=== PATIENT | male | born 1970 | race Asian ===

== ENCOUNTER 2016-12-16 07:37 | Emergency (ER) | payer SELFPAY | END 2016-12-16 07:38 | disposition left against medical advice (07) | LOC: ED 07:37 | DX: Z00.8 Encounter for other general examination (principal); Z53.21 Procedure and treatment not carried out due to patient leaving prior to being seen by health care provider ==

== ENCOUNTER 2020-12-27 21:40 | Emergency (ER) | payer MEDICARE ==
--- NOTE | 2020-12-27 22:39 | Emergency Department Report ---
<AV TATE - Last Filed: 12/27/20 22:36> ED Psych HPI - General Chief Complaint: Psych Stated Complaint: HEARING VOICES AND SUICIDAL THOUGHTS Time Seen by Provider: 12/27/20 22:21 Source: patient Mode of arrival: Ambulatory - History of Present Illness Initial Comments: Mr. De Souza is 50 years old male with history of schizoaffective disorder. Patient presented to the ER stating that he is hearing voices asking him to kill himself by cutting his wrist. Patient denies any homicidal ideation. No visual hallucination also. MD Complaint: suicidal ideation, feels depressed - Related Data Allergies Allergy/AdvReac Type Severity Reaction Status Date / Time codeine Allergy Unknown Verified 09/18/17 12:20 haloperidol [From Haldol] Allergy Seizure Verified 09/18/17 12:20 ED Review of Systems Comment: All other systems reviewed and negative Constitutional: denies: chills, fever Respiratory: denies: cough, shortness of breath, SOB with exertion Cardiovascular: denies: chest pain, palpitations Gastrointestinal: denies: abdominal pain, nausea Musculoskeletal: denies: back pain Neurological: denies: headache, weakness, numbness, paresthesias, confusion, abnormal gait Psychiatric: depression, auditory hallucinations, suicidal thoughts. denies: visual hallucinations, homicidal thoughts ED Past Medical Hx - Past Medical History Previous Medical History?: Yes Hx Hypertension: Yes Hx Psychiatric Treatment: Yes (Paranoid schizophrenia, Severe depression) - Surgical History Past Surgical History?: Yes Hx Appendectomy: Yes Additional Surgical History: Right leg - Social History Smoking Status: Never Smoker Substance Use Type: None ED Physical Exam - General Limitations: No Limitations General appearance: alert, in no apparent distress - Head Head exam: Present: atraumatic, normocephalic, normal inspection - Eye Eye exam: Present: normal appearance, PERRL - ENT ENT exam: Present: normal exam, normal orophraynx, mucous membranes moist - Neck Neck exam: Present: normal inspection, full ROM. Absent: tenderness, meningismu s - Respiratory Respiratory exam: Present: normal lung sounds bilaterally - Cardiovascular Cardiovascular Exam: Present: regular rate, normal rhythm, normal heart sounds - GI/Abdominal GI/Abdominal exam: Present: soft, normal bowel sounds. Absent: distended, tenderness, guarding, rebound, rigid, organomegaly, mass, bruit, pulsatile mass, hernia - Extremities Exam Extremities exam: Present: normal inspection, full ROM, normal capillary refill. Absent: tenderness, pedal edema, calf tenderness - Back Exam Back exam: Present: normal inspection, full ROM. Absent: CVA tenderness (R), CVA tenderness (L) - Neurological Exam Neurological exam: Present: alert, oriented X3, CN II-XII intact, normal gait, reflexes normal. Absent: motor sensory deficit - Psychiatric Psychiatric exam: Present: suicidal ideation. Absent: agitated, manic, homicidal ideation - Skin Skin exam: Present: warm, normal color. Absent: dry, intact ED Disposition Clinical Impression: Hallucinations Disposition: [id number]/TX-[facility] PSY HOSP/PSY UNIT Condition: Stable Referrals: PRIMARY CARE, [Primary Care Provider] - 3-5 Days [facility] [Outside] - 3-5 Days <NAYELI FLOYD - Last Filed: 12/28/20 21:29> ED Review of Systems ROS: Stated complaint: HEARING VOICES AND SUICIDAL THOUGHTS Other details as noted in HPI ED Course Vital Signs 12/27/20 12/27/20 12/28/20 21:41 21:57 02:31 Temperature 98.2 F 97.6 F Pulse Rate 92 H 66 Respiratory 20 18 Rate Blood Pressure 118/78 117/72 [Left] O2 Sat by Pulse 96 96 96 Oximetry 12/28/20 12/28/20 09:19 20:40 Temperature Pulse Rate Respiratory Rate Blood Pressure [Left] O2 Sat by Pulse 98 99 Oximetry ED Medical Decision Making - Lab Data Result diagrams: 12/27/20 22:29 12/27/20 22:29 Critical care attestation.: If time is entered above; I have spent that time in minutes in the direct care of this critically ill patient, excluding procedure time. ED Disposition Is pt being admited?: No Does the pt Need Aspirin: No
[2020-12-27 23:01] LABS: Basophils % (Auto) 0.7 % (0.0-1.8); Eosinophils # (Auto) 0.1 K/mm3 (0.0-0.4); Hematocrit 38.4 % (35.5-45.6); Hemoglobin 13.3 gm/dl (11.8-15.2); Lymphocytes # (Auto) 1.6 K/mm3 (1.2-5.4); Lymphocytes % (Auto) 30.3 % (13.4-35.0); Mean Corpuscular HGB Conc 35 % (32-34); Mean Corpuscular Volume 96 fl (84-94); Monocytes # (Auto) 0.6 K/mm3 (0.0-0.8); Monocytes % (Auto) 12.4 % (0.0-7.3); Platelet Count 174 K/mm3 (140-440); Red Blood Count 4.01 M/mm3 (3.65-5.03); Red Cell Distribution Width 13.5 % (13.2-15.2)
[2020-12-27 23:12] LABS: Mucus,Urine FEW /HPF
[2020-12-27 23:13] LABS: Bilirubin,Urine NEG (Negative); Blood,Urine NEG (Negative); Color,Urine Yellow (Yellow); Protein,Urine <15 mg/dL mg/dL (Negative)
[2020-12-27 23:15] LABS: BUN/Creatinine Ratio 9; Blood Urea Nitrogen 10 mg/dL (9-20); Calcium 8.9 mg/dL (8.4-10.2); Hemolysis Index 3
[2020-12-27 23:23] LABS: Alanine Aminotransferase 10 units/L (7-56); Albumin 3.7 g/dL (3.9-5)
[2020-12-27 23:24] LABS: Amphetamine Screen,Urine PRESUMPTIVE NEGATIVE; Benzodiazepines Screen,Urine PRESUMPTIVE NEGATIVE; Cannabinoid Screen,Urine PRESUMPTIVE NEGATIVE; Cocaine Screen,Urine PRESUMPTIVE NEGATIVE; Methadone Screen,Urine PRESUMPTIVE NEGATIVE; Opiate Screen,Urine PRESUMPTIVE NEGATIVE
[2020-12-27 23:29] LABS: Bilirubin,Direct < 0.2 mg/dL (0-0.2)
--- NOTE | 2020-12-28 11:25 | Consultation ---
History of Present Illness - Reason for Consult Consult date: 12/28/20 Reason for consult: mental health evaluation - History of Present Psychiatric Illness Per ED Note: Mr. De Souza is 50 years old male with history of schizoaffective disorder. Patient presented to the ER stating that he is hearing voices asking him to kill himself by cutting his wrist. Patient denies any homicidal ideation. No visual hallucination also. Tee De Souza is a 50 year old male with a history of Schizoaffective disorder who presents to the ED with suicidal ideation. The patient reports an ongoing depression since the of his mother two months ago. He reports being compliant with psychotropic medications. He endorse suicidal ideation without a plan. The patient denies any current homicidal ideation and denies hallucinations. PAST PSYCHIATRIC HISTORY: Diagnoses: Schizoaffective Suicide attempts or Self-harm behavior: Yes Prior psychiatric hospitalizations: yes Substance Abuse history: yes Previous psychiatric medications tried: Outpatient treatment: yes PAST MEDICAL HISTORY: None reported or document Family Psychiatric History: None reported or documented SOCIAL HISTORY Marital Status: Single Living Arrangements: assisted Employment Status: disabled Access to guns/weapons: denies Education: History of Abuse: denies Legal History: denies REVIEW OF SYSTEMS Constitutional: Negative for weight loss ENT: Negative for stridor Respiratory: Negative for cough or hemoptysis All other systems reviewed and are negative MENTAL STATUS EXAMINATION General Appearance and Behavior: Age appropriate, good hygiene, wearing appropriate clothes, calm and cooperative polite with questioning. Cooperation: engaged Psychomotor Behavior: Psychomotor normal Mood: depressed Affect and affective range: congruent with stated mood Thought Process: goal directed Thought Content: hallucinations Speech: Normal volume, Regular rate and rhythm, Suicidal Ideation: yes with plan to OD Homicidal Ideation: Denies Hallucinations: Auditory, command in nature Delusions: None elicited Impulse Control: Unimpaired Insight and Judgment: Limited Memory: Normal Attention: attentive Orientation: a/o Assessment and Plan (1) Schizoaffective Disorder Current Visit: Yes Status: Acute Treatment Plan Please restart home medications The patient to comply with previously prescribed medications Risks, benefits and alternatives of medications discussed with the patient, questions answered and consent obtained from patient. PSYCHOTHERAPY: Supportive psychotherapy provided MEDICAL: Per primary team DELIRIUM PRECAUTIONS: Please re-orient patient frequently, keep lights on during the day, and minimize benzodiazepines and opiates as these medications could worsen patient's confusion. CMA OR LPN: Defer to primary DISPOSITION: Recommend acute inpatient psychiatric hospitalization at this time. FOLLOW-UP: Will follow Thank you for the consult. Please contact with any questions and/or concerns. Medications and Allergies Medications and Allergies Allergies Allergy/AdvReac Type Severity Reaction Status Date / Time codeine Allergy Unknown Verified 09/18/17 12:20 haloperidol [From Haldol] Allergy Seizure Verified 09/18/17 12:20 Mental Status Exam - Vital signs Last Vital Signs Temp 97.6 F 12/28/20 02:31 Pulse 66 12/28/20 02:31 Resp 18 12/28/20 02:31 BP 117/72 12/28/20 02:31 Pulse Ox 98 12/28/20 09:19 Results Result Diagrams: 12/27/20 22:29 12/27/20 22:29 Abnormal lab results 12/27/20 12/27/20 12/27/20 Range/Units 22:29 22:29 22:29 MCV 96 H (84-94) fl MCH 33 H (28-32) pg MCHC 35 H (32-34) % [place] % (Auto) 12.4 H (0.0-7.3) % Albumin (3.9-5) g/dL Salicylates < 0.3 L (2.8-20.0) mg/dL Acetaminophen 5.0 L (10.0-30.0) ug/mL 12/27/20 Range/Units 22:35 MCV (84-94) fl MCH (28-32) pg MCHC (32-34) % [place] % (Auto) (0.0-7.3) % Albumin 3.7 L (3.9-5) g/dL Salicylates (2.8-20.0) mg/dL Acetaminophen (10.0-30.0) ug/mL All other labs normal.
--- NOTE | 2020-12-28 12:05 | Event Note ---
Date: 12/28/20 S: No complaints O: Vital signs stable. Patient is calm and cooperative. A: Schizoaffective disorder P: 1013; awaiting acute inpatient psychiatric placement
[2020-12-28] MEDS ORDERED: FLUoxetine 20 MG CAP PO SCH (12:30)
[2020-12-28] MEDS: BENZTROPINE 1 MG TAB PO SCH ×2 (12:55→21:47)
[2020-12-28] MEDS: busPIRone 10 MG TAB PO SCH ×2 (12:56→21:47)
[2020-12-28] MEDS ORDERED: risperiDONE 1 MG TAB PO SCH (13:00)
[2020-12-28 21:46] VITALS: BP 120/80
[2020-12-28] MEDS ORDERED: traZODone 50 MG TAB PO SCH (22:00)
[2020-12-28] MEDS ORDERED: DIVALPROEX DR 500 MG TAB PO SCH (22:00)
== END 2020-12-28 21:48 ==
LOC: ED 21:40 → EEVIPCON 21:40 → ED 12-28 21:48
DX: R44.0 Auditory hallucinations (principal); I10 Essential (primary) hypertension; Z20.822 Contact with and (suspected) exposure to COVID-19; Z88.6 Allergy status to analgesic agent; Z88.8 Allergy status to other drugs, medicaments and biological substances; Z90.49 Acquired absence of other specified parts of digestive tract; Z98.890 Other specified postprocedural states
CPT/HCPCS: 36415; 80048; 80076; 80307; 81001; 85025; 99285; U0003; 80320; G0480

== ENCOUNTER 2020-12-28 13:41 | Inpatient (IN) | payer MEDICARE ==
[2021-01-02 09:12] VITALS: BP 99/65
== END 2021-01-02 13:36 | disposition home or self-care (01) | DRG 885 ==
LOC: UNDOADMIN 13:41 → 3A 13:41 → 5A 21:47
PROVIDERS: ADMIT Psychiatry & Neurology Psychiatry; ATTEND Psychiatry & Neurology Psychiatry
DX: F25.9 Schizoaffective disorder, unspecified (principal); R45.851 Suicidal ideations; K29.70 Gastritis, unspecified, without bleeding; Z88.8 Allergy status to other drugs, medicaments and biological substances; Z88.5 Allergy status to narcotic agent; Z79.899 Other long term (current) drug therapy; Z79.891 Long term (current) use of opiate analgesic; Z79.01 Long term (current) use of anticoagulants; Z90.49 Acquired absence of other specified parts of digestive tract; Z82.49 Family history of ischemic heart disease and other diseases of the circulatory system
CPT/HCPCS: 36415; 80048; 80053; 80061; 80074; 80076; 80307; 80320; 81001; 82962; 84443; 85025; G0378; G0480; U0003

== ENCOUNTER 2021-06-02 19:30 | Emergency (ER) | payer MEDICARE ==
--- NOTE | 2021-06-02 23:59 | Emergency Department Report ---
ED General Adult HPI - General Chief complaint: Abdominal Pain Stated complaint: Constipated 3 days Time Seen by Provider: 06/02/21 23:36 Source: patient Mode of arrival: Ambulatory Limitations: No Limitations - History of Present Illness Initial comments: 50-year-old male with asthma department complaining of a 2 to 3-day history of developing constipation not responding to his suppository. Reports no no vomiting no diarrhea no chest pain or palpitations hemoptysis no hematemesis hematochezia but pain is dull and achy. Still he still able to tolerate meals and improved but was at a AA meeting area was wanted get checked out. -: Gradual Location: abdomen Severity scale (0 -10): 0 Consistency: constant Improves with: none Worsens with: none Associated Symptoms: denies: chest pain, cough, diaphoresis, loss of appetite, malaise, nausea/vomiting Treatments Prior to Arrival: none - Related Data Home Medications Medication Instructions Recorded Confirmed Last Taken Benztropine [Cogentin] 1 mg PO BID 12/29/20 12/29/20 Unknown Divalproex [Aron Sorensen] 1,500 mg PO HS 12/29/20 12/29/20 Unknown Paliperidone Palmitate [Invega 234 mg IM QMONTH 12/29/20 12/29/20 Unknown Sustenna] Trazodone HCl 150 mg PO HS 12/29/20 12/29/20 Unknown amLODIPine 5 mg PO DAILY 12/29/20 12/29/20 Unknown busPIRone [Buspar] 10 mg PO BID 12/29/20 12/29/20 Unknown risperiDONE [RisperDAL] 2 mg PO HS 12/29/20 12/29/20 Unknown Previous Rx's Medication Instructions Recorded Last Taken Type FLUoxetine [PROzac] 10 mg PO QDAY #30 tablet 01/02/21 Unknown Rx FLUoxetine [PROzac] 40 mg PO QDAY #60 capsule 01/02/21 Unknown Rx risperiDONE [RisperDAL] 1 mg PO DAILY #30 tablet 01/02/21 Unknown Rx traZODone [Desyrel] 150 mg PO QHS #90 tablet 01/02/21 Unknown Rx Lactulose [Cephulac] 30 gm PO Q6HR #450 ml 06/02/21 Unknown Rx bisacodyL [Dulcolax suppos] 10 mg [place] QDAY #14 supp.rect 06/02/21 Unknown Rx Allergies Allergy/AdvReac Type Severity Reaction Status Date / Time codeine Allergy Unknown Verified 09/18/17 12:20 haloperidol [From Haldol] Allergy Seizure Verified 09/18/17 12:20 ED Review of Systems ROS: Stated complaint: Constipated 3 days Other details as noted in HPI Comment: All other systems reviewed and negative ED Past Medical Hx - Past Medical History Hx Hypertension: Yes Hx Psychiatric Treatment: Yes (Paranoid schizophrenia, Severe depression) - Surgical History Hx Appendectomy: Yes Additional Surgical History: Right leg - Social History Smoking Status: Never Smoker - Medications Home Medications: Home Medications Medication Instructions Recorded Confirmed Last Taken Type Benztropine [Cogentin] 1 mg PO BID 12/29/20 12/29/[address] [Aron Sorensen] 1,500 mg PO HS 12/29/20 12/29/20 Unknown History Paliperidone Palmitate [Invega 234 mg IM QMONTH 12/29/20 12/29/20 Unknown History Sustenna] Trazodone HCl 150 mg PO HS 12/29/20 12/29/20 Unknown History amLODIPine 5 mg PO DAILY 12/29/20 12/29/20 Unknown History busPIRone [Buspar] 10 mg PO BID 12/29/20 12/29/20 Unknown History risperiDONE [RisperDAL] 2 mg PO HS 12/29/20 12/29/20 Unknown History FLUoxetine [PROzac] 10 mg PO QDAY #30 tablet 01/02/21 Unknown Rx FLUoxetine [PROzac] 40 mg PO QDAY #60 capsule 01/02/21 Unknown Rx risperiDONE [RisperDAL] 1 mg PO DAILY #30 tablet 01/02/21 Unknown Rx traZODone [Desyrel] 150 mg PO QHS #90 tablet 01/02/21 Unknown Rx Lactulose [Cephulac] 30 gm PO Q6HR #450 ml 06/02/21 Unknown Rx bisacodyL [Dulcolax suppos] 10 mg [place] QDAY #14 supp.rect 06/02/21 Unknown Rx ED Physical Exam - General Limitations: No Limitations General appearance: alert, in no apparent distress - Head Head exam: Present: atraumatic, normocephalic - Eye Eye exam: Present: normal appearance, PERRL, EOMI - ENT ENT exam: Present: normal exam, mucous membranes moist - Neck Neck exam: Present: normal inspection - Respiratory Respiratory exam: Present: normal lung sounds bilaterally. Absent: respiratory distress - Cardiovascular Cardiovascular Exam: Present: regular rate, normal rhythm. Absent: systolic murmur, diastolic murmur, rubs, gallop - GI/Abdominal GI/Abdominal exam: Present: soft, normal bowel sounds, other (Abdomen soft bowel sounds are positive not hyperactive or hypoactive. No \ [place]jaily bowel sounds). Absent: tenderness, guarding, rebound, organomegaly, mass, bruit, pulsatile mass - Rectal Rectal exam: Present: deferred - Extremities Exam Extremities exam: Present: normal inspection - Back Exam Back exam: Present: normal inspection - Neurological Exam Neurological exam: Present: alert, oriented X3 - Psychiatric Psychiatric exam: Present: normal affect, normal mood - Skin Skin exam: Present: warm, dry, intact, normal color. Absent: rash ED Course Vital Signs 06/02/21 21:14 Temperature 98.3 F Pulse Rate 102 H Respiratory 14 Rate Blood Pressure 152/97 [Right] O2 Sat by Pulse 97 Oximetry ED Medical Decision Making - Radiology Data Radiology results: report reviewed [facility] [address] [place] [address] XRay Report Signed Patient: ALEX SALAZAR MR#: [id number] : 1970 Acct:[id number] Age/Sex: 50 / M ADM Date: 06/02/21 Loc: ED Attending Dr: Ordering Physician: ANASTASIA ROBERSON Date of Service: 06/02/21 Procedure(s): XR abd series w cxr 1V Accession Number(s): [id number] cc: ANASTASIA ROBERSON Fluoro Time In Minutes: ABDOMEN 3 VIEW(S) INDICATION / CLINICAL INFORMATION: constipation abd pain. COMPARISON: 05/17/21 FINDINGS: TUBES / LINES: None. BOWEL GAS PATTERN: No dilated large or small bowel. Moderate amount of fecal material throughout the colon similar to prior study. FREE AIR / EXTRALUMINAL GAS: None seen. ADDITIONAL FINDINGS: No significant additional findings. CHEST: Visualized chest shows no significant abnormality. IMPRESSION: 1. Moderate amount of fecal material within the colon, unchanged. Signer Name: Renu Alejo MD Signed: 06/03/2021 12:06 AM Workstation Name: [id number] Transcribed By: DT Dictated By: Gabo Alejo MD Electronically Authenticated By: Gabo Alejo MD Signed Date/Time: 06/03/216 DD/ 0005 TD/TT: - Medical Decision Making 50-year-old male seen emerge department for possible constipation and x-ray does shows moderate amount of stool but no obstructive process. Is been advised on treatments to help to alleviate the symptoms and when to return to emergency department. Patient is alert and oriented x3 in no acute distress and tolerating oral. Remained afebrile during the visit no vomiting episodes Critical care attestation.: If time is entered above; I have spent that time in minutes in the direct care of this critically ill patient, excluding procedure time. ED Disposition Clinical Impression: Abdominal pain Disposition: HOME / SELF CARE / HOMELESS Is pt being admited?: No Does the pt Need Aspirin: No Condition: Stable Prescriptions: Lactulose [Cephulac] 30 gm PO Q6HR #450 ml bisacodyL [Dulcolax suppos] 10 mg [place] QDAY #14 supp.rect
--- NOTE | 2021-06-03 00:10 | XRay Report ---
ABDOMEN 3 VIEW(S) INDICATION / CLINICAL INFORMATION: constipation abd pain. COMPARISON: 05/17/21 FINDINGS: TUBES / LINES: None. BOWEL GAS PATTERN: No dilated large or small bowel. Moderate amount of fecal material throughout the colon similar to prior study. FREE AIR / EXTRALUMINAL GAS: None seen. ADDITIONAL FINDINGS: No significant additional findings. CHEST: Visualized chest shows no significant abnormality. IMPRESSION: 1. Moderate amount of fecal material within the colon, unchanged. Signer Name: Renu Alejo MD Signed: 06/03/2021 12:06 AM Workstation Name: [id number]
[2021-06-03 02:24] VITALS: BP 140/80
== END 2021-06-03 03:00 | disposition home or self-care (01) ==
LOC: ED 19:30
DX: R10.9 Unspecified abdominal pain (principal); Z88.5 Allergy status to narcotic agent; Z88.8 Allergy status to other drugs, medicaments and biological substances; I10 Essential (primary) hypertension; Z90.89 Acquired absence of other organs
CPT/HCPCS: 74022; 99283

== ENCOUNTER 2021-07-10 14:51 | Emergency (ER) | payer MEDICARE ==
[2021-07-10] MEDS ORDERED: BENZTROPINE 0.5 MG TAB PO ONE (17:32)
[2021-07-10] MEDS ORDERED: ACETAMINOPHEN 500 MG TAB PO ONE (17:33)
--- NOTE | 2021-07-10 17:37 | Emergency Department Report ---
ED Psych HPI - General Chief Complaint: Psych Stated Complaint: SI/HEARING VOICES Time Seen by Provider: 07/10/21 16:25 Source: patient, EMS Mode of arrival: Ambulatory Limitations: No Limitations - History of Present Illness Initial Comments: Chief complaint: "Hearing voices, suicidal, feeling depressed." HPI: This is a 50-year-old male with history of hypertension, gastritis schizoaffective disorder who presents with "hearing voices, suicidal and feeling depressed." He denies any physical concerns with exception of mild headache.. MD Complaint: suicidal ideation, feels depressed -: Gradual, days(s) (1 day) Associated Psychiatric Symptoms: depression History of same: Yes Quality: constant Improves With: none Worsens With: none Context: other (He is compliant with medication.) Associated Symptoms: headache Treatments Prior to Arrival: none If Self Harm: admits thoughts of - Related Data Home Medications Medication Instructions Recorded Confirmed Last Taken Benztropine [Cogentin] 1 mg PO BID 12/29/20 12/29/20 Unknown Divalproex [Aron Sorensen] 1,500 mg PO HS 12/29/20 12/29/20 Unknown Paliperidone Palmitate [Invega 234 mg IM QMONTH 12/29/20 12/29/20 Unknown Sustenna] Trazodone HCl 150 mg PO HS 12/29/20 12/29/20 Unknown amLODIPine 5 mg PO DAILY 12/29/20 12/29/20 Unknown busPIRone [Buspar] 10 mg PO BID 12/29/20 12/29/20 Unknown risperiDONE [RisperDAL] 2 mg PO HS 12/29/20 12/29/20 Unknown Previous Rx's Medication Instructions Recorded Last Taken Type FLUoxetine [PROzac] 10 mg PO QDAY #30 tablet 01/02/21 Unknown Rx FLUoxetine [PROzac] 40 mg PO QDAY #60 capsule 01/02/21 Unknown Rx risperiDONE [RisperDAL] 1 mg PO DAILY #30 tablet 01/02/21 Unknown Rx traZODone [Desyrel] 150 mg PO QHS #90 tablet 01/02/21 Unknown Rx Lactulose [Cephulac] 30 gm PO Q6HR #450 ml 06/02/21 Unknown Rx bisacodyL [Dulcolax suppos] 10 mg [place] QDAY #14 supp.rect 06/02/21 Unknown Rx Allergies Allergy/AdvReac Type Severity Reaction Status Date / Time codeine Allergy Unknown Verified 09/18/17 12:20 haloperidol [From Haldol] Allergy Seizure Verified 09/18/17 12:20 ED Review of Systems ROS: Stated complaint: SI/HEARING VOICES Other details as noted in HPI Comment: All other systems reviewed and negative Constitutional: denies: chills, fever, malaise Respiratory: denies: cough, shortness of breath Cardiovascular: denies: chest pain Gastrointestinal: denies: abdominal pain, nausea, vomiting Psychiatric: depression, auditory hallucinations ED Past Medical Hx - Past Medical History Previous Medical History?: Yes Hx Hypertension: Yes Hx Congestive Heart Failure: No Hx Diabetes: No Hx Renal Disease: No Hx Arthritis: No Hx Seizures: No Hx Psychiatric Treatment: Yes (Paranoid schizophrenia, Severe depression) Hx Asthma: No Hx COPD: No Hx Dementia: No - Surgical History Past Surgical History?: Yes Hx Cholecystectomy: No Hx Appendectomy: Yes Additional Surgical History: Right leg - Social History Smoking Status: Never Smoker Substance Use Type: None - Medications Home Medications: Home Medications Medication Instructions Recorded Confirmed Last Taken Type Benztropine [Cogentin] 1 mg PO BID 12/29/20 12/29/[address] [Aron Sorensen] 1,500 mg PO HS 12/29/20 12/29/20 Unknown History Paliperidone Palmitate [Invega 234 mg IM QMONTH 12/29/20 12/29/20 Unknown History Sustenna] Trazodone HCl 150 mg PO HS 12/29/20 12/29/20 Unknown History amLODIPine 5 mg PO DAILY 12/29/20 12/29/20 Unknown History busPIRone [Buspar] 10 mg PO BID 12/29/20 12/29/20 Unknown History risperiDONE [RisperDAL] 2 mg PO HS 12/29/20 12/29/20 Unknown History FLUoxetine [PROzac] 10 mg PO QDAY #30 tablet 01/02/21 Unknown Rx FLUoxetine [PROzac] 40 mg PO QDAY #60 capsule 01/02/21 Unknown Rx risperiDONE [RisperDAL] 1 mg PO DAILY #30 tablet 01/02/21 Unknown Rx traZODone [Desyrel] 150 mg PO QHS #90 tablet 01/02/21 Unknown Rx Lactulose [Cephulac] 30 gm PO Q6HR #450 ml 06/02/21 Unknown Rx bisacodyL [Dulcolax suppos] 10 mg [place] QDAY #14 supp.rect 06/02/21 Unknown Rx ED Physical Exam - General Limitations: No Limitations General appearance: alert, in no apparent distress - Head Head exam: Present: atraumatic, normocephalic - Eye Eye exam: Present: normal appearance - ENT ENT exam: Present: mucous membranes moist - Neck Neck exam: Present: normal inspection, full ROM - Respiratory Respiratory exam: Present: normal lung sounds bilaterally. Absent: respiratory distress, wheezes, rales, rhonchi - Cardiovascular Cardiovascular Exam: Present: regular rate, normal rhythm, normal heart sounds. Absent: systolic murmur, diastolic murmur, rubs, gallop - GI/Abdominal GI/Abdominal exam: Present: soft, normal bowel sounds. Absent: distended, tenderness, guarding, rebound - Rectal Rectal exam: Present: deferred - Extremities Exam Extremities exam: Present: normal inspection - Back Exam Back exam: Present: normal inspection - Neurological Exam Neurological exam: Present: alert, oriented X3 - Psychiatric Psychiatric exam: Present: depressed, flat affect - Skin Skin exam: Present: warm, dry, intact, normal color. Absent: rash ED Course Vital Signs 07/10/21 07/10/21 14:51 14:56 Pulse Rate 111 H Respiratory 14 Rate Blood Pressure 124/94 [Right] O2 Sat by Pulse 96 98 Oximetry ED Medical Decision Making - Medical Decision Making Mr. De Souza is a 50-year-old male who presents with depression, auditory hallucinations and suicidal ideation. I evaluated Mr. De Souza last week. He was discharged after mental health evaluation. He currently does not have a plan to harm himself. 1013 form is not indicated at this time. In my opinion he is at low risk for self-harm. He consistently seeks help immediately when he has depressed mood or hallucinations. Will await treatment recommendations by mental health team. Labs not indicated unless inpatient treatment is recommended. He is medically clear for psychiatric care. Critical care attestation.: If time is entered above; I have spent that time in minutes in the direct care of this critically ill patient, excluding procedure time. ED Disposition Clinical Impression: Schizoaffective disorder Disposition: 30 STILL A PATIENT Is pt being admited?: No Does the pt Need Aspirin: No Condition: Stable
[2021-07-11 10:54] VITALS: BP 105/68
--- NOTE | 2021-07-11 11:10 | Consultation ---
History of Present Illness - Reason for Consult Consult date: 07/11/21 Reason for consult: mental health evaluation - History of Present Psychiatric Illness The patient is a 50 year old male with Schizoaffective disorder who presents to the ED with suicidal ideation. The patient is well known to this establishment. In my interview with the patient he is calm, alert and oriented x3. The patient endorses passive suicidal ideation with no plan. In my profession opinion, continuation of inpatient treatment is contraindicated as it will reinforce maladaptive behaviors. PAST PSYCHIATRIC HISTORY: Diagnoses: Schizoaffective Suicide attempts or Self-harm behavior: Yes Prior psychiatric hospitalizations: yes Substance Abuse history: yes Previous psychiatric medications tried: Outpatient treatment: yes PAST MEDICAL HISTORY: None reported or document Family Psychiatric History: None reported or documented SOCIAL HISTORY Marital Status: Single Living Arrangements: [facility] Employment Status: disabled Access to guns/weapons: denies Education: History of Abuse: denies Legal History: denies REVIEW OF SYSTEMS Constitutional: Negative for weight loss ENT: Negative for stridor Respiratory: Negative for cough or hemoptysis All other systems reviewed and are negative MENTAL STATUS EXAMINATION General Appearance and Behavior: Age appropriate, good hygiene, wearing appropriate clothes, calm and cooperative polite with questioning. Cooperation: engaged Psychomotor Behavior: Psychomotor normal Mood: depressed Affect and affective range: congruent with stated mood Thought Process: goal directed Thought Content: Reality oriented Speech: Normal volume, Regular rate and rhythm, Suicidal Ideation: yes Homicidal Ideation: Denies Hallucinations: Auditory, chronic- non commanding Delusions: None elicited Impulse Control: Unimpaired Insight and Judgment: Limited Memory: Normal Attention: attentive Orientation: a/o Assessment and Plan (1) Schizoaffective Disorder Current Visit: Yes Status: Acute Dc 1013 Treatment Plan Please restart home medications The patient to comply with previously prescribed medications Risks, benefits and alternatives of medications discussed with the patient, questions answered and consent obtained from patient. PSYCHOTHERAPY: Supportive psychotherapy provided MEDICAL: Per primary team DELIRIUM PRECAUTIONS: Please re-orient patient frequently, keep lights on during the day, and minimize benzodiazepines and opiates as these medications could worsen patient's confusion. PACKER FUSER: Defer to primary DISPOSITION:Do not recommend acute inpatient psychiatric hospitalization at this time. FOLLOW-UP: Will sign off. Thank you for the consult. Please contact with any questions and/or concerns. Medications and Allergies Medications and Allergies Allergies Allergy/AdvReac Type Severity Reaction Status Date / Time codeine Allergy Unknown Verified 09/18/17 12:20 haloperidol [From Haldol] Allergy Seizure Verified 09/18/17 12:20 Home Medications Medication Instructions Recorded Confirmed Last Taken Type Benztropine [Cogentin] 1 mg PO BID 12/29/20 07/11/[address] [Aron Sorensen] 1,500 mg PO HS 12/29/20 07/11/21 Unknown History Paliperidone Palmitate [Invega 234 mg IM QMONTH 12/29/20 07/11/21 Unknown History Sustenna] Trazodone HCl 150 mg PO HS 12/29/20 07/11/21 Unknown History traZODone [Desyrel] 150 mg PO QHS #90 tablet 01/02/21 07/11/21 Unknown Rx Quetiapine Fumarate [SEROquel] 50 mg PO QDAY 07/11/21 07/11/21 Unknown History Mental Status Exam - Vital signs Last Vital Signs Temp 99 F 07/11/21 10:53 Pulse 89 07/11/21 10:53 Resp 16 07/11/21 10:53 BP 105/68 07/11/21 10:53 Pulse Ox 98 07/11/21 10:53 Results All other labs normal.
== END 2021-07-11 12:38 | disposition home or self-care (01) ==
LOC: ED 14:51
DX: F20.9 Schizophrenia, unspecified (principal); Z20.822 Contact with and (suspected) exposure to COVID-19; Z88.5 Allergy status to narcotic agent; I10 Essential (primary) hypertension
CPT/HCPCS: 99284; U0003

== ENCOUNTER 2021-07-17 15:36 | Emergency (ER) | payer MEDICARE ==
--- NOTE | 2021-07-17 18:17 | Emergency Department Report ---
- General Chief complaint: Weakness Stated complaint: BLE WEAKNESS Time Seen by Provider: 07/17/21 18:13 Source: EMS Mode of arrival: Stretcher Limitations: No Limitations - History of Present Illness Initial comments: 50 yom with pmh of schizoaffective disorder, depression, and anxiety presents to Ed for evaluation of bilateral leg weakness. He states that he was on his way to [place] for a meeting when it felt like his legs were going to give out. He denies CP, sob, and dizziness. He states that weakness has resolved, he feels fine now, but is here to "make sure" that he is ok. He denies SI and HI and is without c/o at this time. MD Complaint: focal weakness (to bilateral legs) -: Sudden Severity scale (0 -10): 0 Consistency: now resolved Associated Symptoms: denies other symptoms - Related Data Home Medications Medication Instructions Recorded Confirmed Last Taken Benztropine [Cogentin] 1 mg PO BID 12/29/20 07/11/[address] [[place] Sorensen] 1,500 mg PO HS 12/29/20 07/11/21 Unknown Paliperidone Palmitate [Invega 234 mg IM QMONTH 12/29/20 07/11/21 Unknown Sustenna] Trazodone HCl 150 mg PO HS 12/29/20 07/11/21 Unknown Quetiapine Fumarate [SEROquel] 50 mg PO QDAY 07/11/21 07/11/21 Unknown Previous Rx's Medication Instructions Recorded Last Taken Type traZODone [Desyrel] 150 mg PO QHS #90 tablet 01/02/21 Unknown Rx Allergies Allergy/AdvReac Type Severity Reaction Status Date / Time codeine Allergy Unknown Verified 09/18/17 12:20 haloperidol [From Haldol] Allergy Seizure Verified 09/18/17 12:20 ED Review of Systems ROS: Stated complaint: BLE WEAKNESS Other details as noted in HPI Comment: All other systems reviewed and negative Constitutional: denies: chills, fever Eyes: denies: eye pain ENT: denies: ear pain Respiratory: denies: cough, shortness of breath, SOB with exertion, SOB at rest, wheezing Cardiovascular: denies: chest pain, palpitations, dyspnea on exertion, orthopnea, edema, syncope, paroxysmal nocturnal dyspnea Endocrine: no symptoms reported Gastrointestinal: denies: abdominal pain, nausea, vomiting, diarrhea, hematemesis, melena, hematochezia Genitourinary: denies: urgency, dysuria Musculoskeletal: denies: back pain Skin: denies: rash, lesions Neurological: weakness. denies: headache, numbness, paresthesias, abnormal gait Psychiatric: denies: anxiety, auditory hallucinations, visual hallucinations, homicidal thoughts, suicidal thoughts Hematological/Lymphatic: denies: easy bleeding, easy bruising ED Past Medical Hx - Past Medical History Hx Hypertension: Yes Hx Congestive Heart Failure: No Hx Diabetes: No Hx Renal Disease: No Hx Arthritis: No Hx Seizures: No Hx Psychiatric Treatment: Yes (Paranoid schizophrenia, Severe depression) Hx Asthma: No Hx COPD: No Hx Dementia: No - Surgical History Hx Cholecystectomy: No Hx Appendectomy: Yes Additional Surgical History: Right leg - Social History Smoking Status: Never Smoker Substance Use Type: None - Medications Home Medications: Home Medications Medication Instructions Recorded Confirmed Last Taken Type Benztropine [Cogentin] 1 mg PO BID 12/29/20 07/11/[address] [[place] Dr] 1,500 mg PO HS 12/29/20 07/11/21 Unknown History Paliperidone Palmitate [Invega 234 mg IM QMONTH 12/29/20 07/11/21 Unknown History Sustenna] Trazodone HCl 150 mg PO HS 12/29/20 07/11/21 Unknown History traZODone [Desyrel] 150 mg PO QHS #90 tablet 01/02/21 07/11/21 Unknown Rx Quetiapine Fumarate [SEROquel] 50 mg PO QDAY 07/11/21 07/11/21 Unknown History ED Physical Exam - General Limitations: No Limitations General appearance: alert, in no apparent distress - Head Head exam: Present: atraumatic, normocephalic - Eye Eye exam: Present: normal appearance. Absent: scleral icterus, conjunctival injection - Neck Neck exam: Present: normal inspection, full ROM. Absent: tenderness - Respiratory Respiratory exam: Present: normal lung sounds bilaterally. Absent: respiratory distress, wheezes, rales, rhonchi, stridor, chest wall tenderness - Cardiovascular Cardiovascular Exam: Present: tachycardia, normal heart sounds - GI/Abdominal GI/Abdominal exam: Present: soft, normal bowel sounds. Absent: distended, tenderness, guarding, rebound, rigid - Extremities Exam Extremities exam: Present: pedal edema (trace to 1+ bilateral ankles). Absent: calf tenderness - Back Exam Back exam: Present: normal inspection. Absent: CVA tenderness (R), CVA tenderness (L) - Neurological Exam Neurological exam: Present: alert, oriented X3 - Psychiatric Psychiatric exam: Present: normal affect, normal mood - Skin Skin exam: Present: warm, dry, intact, normal color ED Course Vital Signs 07/17/21 07/17/21 15:38 18:24 Temperature 98.3 F Pulse Rate 115 H 85 Respiratory 16 16 Rate Blood Pressure 120/77 125/84 [Left] O2 Sat by Pulse 98 97 Oximetry ED Medical Decision Making - Medical Decision Making 50 yom with pmh of schizoaffective disorder, depression, and anxiety presents to Ed for evaluation of bilateral leg weakness. He states that he was on his way to [place] for a meeting when it felt like his legs were going to give out. He denies CP, sob, and dizziness. He states that weakness has resolved, he feels fine now, but is here to "make sure" that he is ok. He denies SI and HI and is without c/o at this time. No acute abnormalities noted on exam. Patient states that weakness has completely resolved and is without complaints of at this time. He was advised to followup with pcp or in the ED if worsening symptoms. He verbalized understanding of and agreement with plan of care. Critical care attestation.: If time is entered above; I have spent that time in minutes in the direct care of this critically ill patient, excluding procedure time. ED Disposition Clinical Impression: Bilateral leg weakness Disposition: HOME / SELF CARE / HOMELESS Is pt being admited?: No Does the pt Need Aspirin: No Condition: Stable Instructions: Weakness Additional Instructions: Follow-up with primary care provider for further evaluations. Return to the emergency department if worsening symptoms. Referrals: JOVANNY VANN MD [Referring] - 3-5 Days Time of Disposition: 18:16
[2021-07-17 18:28] VITALS: BP 125/84
== END 2021-07-17 18:29 | disposition home or self-care (01) ==
LOC: ED 15:36
DX: R53.1 Weakness (principal); I10 Essential (primary) hypertension; F20.9 Schizophrenia, unspecified; Z98.890 Other specified postprocedural states
CPT/HCPCS: 99283

== ENCOUNTER 2021-09-17 19:12 | Emergency (ER) | payer MEDICARE ==
--- NOTE | 2021-09-17 19:37 | Emergency Department Report ---
ED Psych HPI - General Chief Complaint: Psych Stated Complaint: SI Time Seen by Provider: 09/17/21 19:26 Source: patient, EMS Mode of arrival: Stretcher Limitations: No Limitations - History of Present Illness Initial Comments: Patient is a 51-year-old male with history of schizophrenia presenting with complaint of suicidal ideations for the past week. States he plan to overdose on his psych medications. MD Complaint: suicidal ideation Improves With: none Worsens With: none Associated Symptoms: denies other symptoms Treatments Prior to Arrival: none If Self Harm: admits thoughts of, has plan - Related Data Home Medications Medication Instructions Recorded Confirmed Last Taken Paliperidone Palmitate [Invega 234 mg IM QMONTH 05/19/19 08/05/21 07/31/21 10:00 Sustenna] Benztropine [Cogentin] 0.5 mg PO DAILY 07/14/19 08/05/21 08/05/21 10:00 Divalproex ER [Depakote ER] 500 mg PO BID 09/09/19 08/05/21 07/19/21 traZODone [Desyrel] 150 mg PO QHS 06/25/21 08/05/21 07/19/21 Allergies Allergy/AdvReac Type Severity Reaction Status Date / Time codeine Allergy Seizure Verified 08/05/21 02:06 haloperidol [From Haldol] Allergy Unknown Verified 08/05/21 02:06 narcotics AdvReac Unknown Uncoded 08/05/21 02:06 ED Review of Systems ROS: Stated complaint: SI Other details as noted in HPI Constitutional: denies: chills, fever Respiratory: denies: cough, shortness of breath, wheezing Cardiovascular: denies: chest pain, palpitations Gastrointestinal: denies: abdominal pain, nausea, diarrhea Genitourinary: denies: urgency, dysuria Musculoskeletal: denies: back pain, joint swelling, arthralgia Skin: denies: rash, lesions Neurological: denies: headache, weakness, paresthesias Psychiatric: suicidal thoughts ED Past Medical Hx - Past Medical History Previous Medical History?: Yes Hx Hypertension: Yes Hx Congestive Heart Failure: No Hx Diabetes: No Hx GERD: Yes Hx Psychiatric Treatment: Yes (schizoaffective disorder, depression, Schizophrenia) Hx Asthma: No Hx HIV: No Additional medical history: bipolar. manic depression. substance abuse. ulcers, N/V - Surgical History Past Surgical History?: Yes Hx Appendectomy: No Additional Surgical History: right leg surgery compound fracture - Social History Smoking Status: Never Smoker Substance Use Type: None - Medications Home Medications: Home Medications Medication Instructions Recorded Confirmed Last Taken Type Paliperidone Palmitate [Invega 234 mg IM QMONTH 05/19/19 08/05/21 07/31/21 10:00 History Sustenna] Benztropine [Cogentin] 0.5 mg PO DAILY 07/14/19 08/05/21 08/05/21 10:00 History Divalproex ER [Depakote ER] 500 mg PO BID 09/09/19 08/05/21 07/19/21 History traZODone [Desyrel] 150 mg PO QHS 06/25/21 08/05/21 07/19/21 History ED Physical Exam - General Limitations: No Limitations General appearance: alert, in no apparent distress - Head Head exam: Present: atraumatic, normocephalic - Respiratory Respiratory exam: Present: normal lung sounds bilaterally. Absent: respiratory distress - Cardiovascular Cardiovascular Exam: Present: regular rate, normal rhythm. Absent: systolic mur mur, diastolic murmur, rubs, gallop - GI/Abdominal GI/Abdominal exam: Present: soft, normal bowel sounds - Rectal Rectal exam: Present: deferred - Extremities Exam Extremities exam: Present: normal inspection - Neurological Exam Neurological exam: Present: alert, oriented X3, CN II-XII intact - Psychiatric Psychiatric exam: Present: normal affect, suicidal ideation - Skin Skin exam: Present: warm, dry, intact, normal color ED Course Vital Signs 09/17/21 09/17/21 19:18 20:20 Temperature 98 F 98.6 F Pulse Rate 108 H 108 H Respiratory 18 18 Rate Blood Pressure 127/79 Blood Pressure 108/61 [Left] O2 Sat by Pulse 99 96 Oximetry ED Medical Decision Making - Lab Data Result diagrams: 09/17/21 20:41 09/17/21 20:41 - Medical Decision Making Labs gross unremarkable. Patient medically cleared. Awaiting mental health assessment. Critical care attestation.: If time is entered above; I have spent that time in minutes in the direct care of this critically ill patient, excluding procedure time. ED Disposition Clinical Impression: Suicidal ideations Disposition: 30 STILL A PATIENT Is pt being admited?: No Condition: Stable
[2021-09-17 20:52] LABS: Basophils % (Auto) 0.7 % (0.0-1.8); Eosinophils # (Auto) 0.1 K/mm3 (0.0-0.4); Eosinophils % (Auto) 2.4 % (0.0-4.3); Hematocrit 39.2 % (35.5-45.6); Hemoglobin 13.2 gm/dl (11.8-15.2); Lymphocytes # (Auto) 1.2 K/mm3 (1.2-5.4); Lymphocytes % (Auto) 25.4 % (13.4-35.0); Mean Corpuscular HGB Conc 34 % (32-34); Mean Corpuscular Volume 95 fl (84-94); Monocytes # (Auto) 0.5 K/mm3 (0.0-0.8); Monocytes % (Auto) 10.9 % (0.0-7.3); Platelet Count 151 K/mm3 (140-440); Red Blood Count 4.13 M/mm3 (3.65-5.03); Red Cell Distribution Width 12.3 % (13.2-15.2)
[2021-09-17 20:54] LABS: Bilirubin,Urine NEG (Negative); Blood,Urine NEG (Negative); Color,Urine Yellow (Yellow); Mucus,Urine FEW /HPF; Protein,Urine <15 mg/dL mg/dL (Negative)
[2021-09-17 20:56] LABS: RBC,Urine < 1.0 /HPF (0.0-6.0)
[2021-09-17 21:01] LABS: Amphetamine Screen,Urine PRESUMPTIVE NEGATIVE; Benzodiazepines Screen,Urine PRESUMPTIVE NEGATIVE; Cannabinoid Screen,Urine PRESUMPTIVE NEGATIVE; Cocaine Screen,Urine PRESUMPTIVE NEGATIVE; Methadone Screen,Urine PRESUMPTIVE NEGATIVE; Opiate Screen,Urine PRESUMPTIVE NEGATIVE
[2021-09-17 21:09] LABS: BUN/Creatinine Ratio 7; Blood Urea Nitrogen 7 mg/dL (9-20); Calcium 8.6 mg/dL (8.4-10.2); Hemolysis Index 6
--- NOTE | 2021-09-18 10:48 | Consultation ---
History of Present Illness - Reason for Consult Consult date: 09/18/21 Reason for consult: mental health evaluation - History of Present Psychiatric Illness The patient is a 51 year old male with history of schizoaffective disorder who presents to the ED with suicidal ideation. The patient resides in a halfway and he is well know to this establishment. The patient states he has been feeling suicidal for the past one week. The patient is followed by a psychiatrist and wrap around program. The patient can be safely maintained and effectively treated at a less intensive level of care. PAST PSYCHIATRIC HISTORY: Diagnoses:Schizoaffective Suicide attempts or Self-harm behavior: Yes Prior psychiatric hospitalizations: yes Substance Abuse history: yes Previous psychiatric medications tried: Multiple Outpatient treatment: yes PAST MEDICAL HISTORY: None reported or document Family Psychiatric History: None reported or documented SOCIAL HISTORY Marital Status: Single Living Arrangements: halfway Employment Status: disabled Access to guns/weapons: denies Education: High school History of Abuse: denies Legal History: denies REVIEW OF SYSTEMS Constitutional: Negative for weight loss ENT: Negative for stridor Respiratory: Negative for cough or hemoptysis All other systems reviewed and are negative MENTAL STATUS EXAMINATION General Appearance and Behavior: Age appropriate, good hygiene, wearing ap propriate clothes, calm and cooperative polite with questioning. Cooperation: engaged Psychomotor Behavior: Psychomotor normal Mood: depressed Affect and affective range: congruent with stated mood Thought Process: Goal directed Thought Content: Reality oriented Speech: Normal volume, Regular rate and rhythm, Suicidal Ideation: Yes, passive Homicidal Ideation: Denies Hallucinations: Denies Delusions: None elicited Impulse Control: Normal Insight and Judgment: Limited Memory: Normal Attention: attentive Orientation: a/o x3 Diagnoses: Schizoaffective Disorder Treatment Plan TREATMENT PLAN Continue home medications. Sitter: per primary Medical: per primary Disposition: Do not recommend acute psychiatric inpatient treatment. Will sign off. Thanks Medications and Allergies Allergies Allergy/AdvReac Type Severity Reaction Status Date / Time codeine Allergy Seizure Verified 08/05/21 02:06 haloperidol [From Haldol] Allergy Unknown Verified 08/05/21 02:06 narcotics AdvReac Unknown Uncoded 08/05/21 02:06 Home Medications Medication Instructions Recorded Confirmed Last Taken Type Paliperidone Palmitate [Invega 234 mg IM QMONTH 05/19/19 08/05/21 07/31/21 10:00 History Sustenna] Benztropine [Cogentin] 0.5 mg PO DAILY 07/14/19 08/05/21 08/05/21 10:00 History Divalproex ER [Depakote ER] 500 mg PO BID 09/09/19 08/05/21 07/19/21 History traZODone [Desyrel] 150 mg PO QHS 06/25/21 08/05/21 07/19/21 History Mental Status Exam - Vital signs Last Vital Signs Temp 97.8 F 09/18/21 02:10 Pulse 75 09/18/21 02:10 Resp 16 09/18/21 02:10 BP 101/59 09/18/21 02:10 Pulse Ox 100 09/18/21 07:00 Results Result Diagrams: 09/17/21 20:41 09/17/21 20:41 Abnormal lab results 09/17/21 09/17/21 09/17/21 Range/Units 20:41 20:41 20:41 MCV (84-94) fl RDW (13.2-15.2) % [facility] % (Auto) (0.0-7.3) % BUN 7 L (9-20) mg/dL Salicylates < 0.3 L (2.8-20.0) mg/dL Acetaminophen 5.0 L (10.0-30.0) ug/mL 09/17/21 Range/Units 20:41 MCV 95 H (84-94) fl RDW 12.3 L (13.2-15.2) % [facility] % (Auto) 10.9 H (0.0-7.3) % BUN (9-20) mg/dL Salicylates (2.8-20.0) mg/dL Acetaminophen (10.0-30.0) ug/mL All other labs normal.
[2021-09-18 13:17] VITALS: BP 131/78
== END 2021-09-18 12:00 | disposition home or self-care (01) ==
LOC: MERGE 19:12 → ED 19:12
DX: R45.851 Suicidal ideations (principal); F20.9 Schizophrenia, unspecified; I10 Essential (primary) hypertension; K21.9 Gastro-esophageal reflux disease without esophagitis; F31.9 Bipolar disorder, unspecified; Z88.8 Allergy status to other drugs, medicaments and biological substances; Z88.5 Allergy status to narcotic agent; Z79.899 Other long term (current) drug therapy
CPT/HCPCS: 36415; 80048; 80307; 80320; 81001; 85025; 99284; G0480

== ENCOUNTER 2021-10-06 21:18 | Emergency (ER) | payer MEDICARE | END 2021-10-06 22:24 | disposition left against medical advice (07) | LOC: ED 21:18 | DX: R21 Rash and other nonspecific skin eruption (principal); Z53.21 Procedure and treatment not carried out due to patient leaving prior to being seen by health care provider ==

== ENCOUNTER 2021-11-01 18:07 | Emergency (ER) | payer MEDICARE ==
[2021-11-01 18:27] VITALS: BP 120/70
[2021-11-02] MEDS ORDERED: NEOMY 3.5 MG/BACIT 400 UNITS/POLY B 5000 UNITS/GM OINT PACKET TP ONE (01:59)
--- NOTE | 2021-11-02 02:49 | Cat Scan Report ---
CT HEAD WITHOUT CONTRAST INDICATION / CLINICAL INFORMATION: fall, LOC. TECHNIQUE: CT head was performed without administration of intravenous contrast. All CT scans at this location are performed using CT dose reduction for ALARA by means of automated exposure control. COMPARISON: CT head 01/17/2021 FINDINGS: CEREBRAL HEMISPHERES: Moderate motion artifact. Generalized atrophy and bilateral regions of perivent ricular white matter hypoattenuation compatible with microvascular ischemia are demonstrated. No midl ine shift. Basal cisterns patent. Lacunar infarction left basal ganglia is stable. HEMORRHAGE: None. CEREBELLUM / BRAINSTEM: No significant abnormality. ORBITS: No significant abnormality. SOFT TISSUES: No significant abnormality. SKULL: No significant abnormality. PARANASAL SINUSES / MASTOID AIR CELLS: Normal as visualized. ADDITIONAL FINDINGS: None. IMPRESSION: 1. Allowing for motion, no acute intracranial abnormality. Stable senescent changes. Signer Name: Lewis Recinos II, MD Signed: 11/02/2021 2:44 AM Workstation Name: [id number]
--- NOTE | 2021-11-02 03:18 | Emergency Department Report ---
ED Fall HPI - General Chief Complaint: Extremity Injury, Lower Stated Complaint: FALL FROM STANDING POSITION Time Seen by Provider: 11/02/21 01:57 Source: patient, EMS Mode of arrival: Stretcher - History of Present Illness Initial Comments: 51-year-old white male with a past medical history of schizophrenia presents to the emergency department for evaluation after falling. He states that he was walking down guard and walk on his way to a a meeting at [employer] and he fell twice and hit his head on the concrete. He states that he had positive loss of consciousness. He denies vision changes, nausea, vomiting, and dizziness. He also has abrasions to his bilateral knees. MD Complaint: fall -: Sudden Fall From: standing When Fall Occurred: 1-3 hours [employer] Fall Witnessed: no Place Fall Occurred: street Loss of Consciousness: yes Prolonged Down Time?: unclear Symptoms Prior to Fall: none Location: head Location - Extremities: Left: Knee, Right: Knee Severity scale (0 -10): 10 Quality: aching Context: tripped/slipped Associated Symptoms: headache. denies: neck pain, numbness, weakness, chest paint, shortness of breath, abdominal pain, hematuria, unable to walk, lightheaded, vertigo - Related Data Home Medications Medication Instructions Recorded Confirmed Last Taken Paliperidone Palmitate [Invega 234 mg IM QMONTH 05/19/19 08/05/21 07/31/21 10:00 Sustenna] Benztropine [Cogentin] 0.5 mg PO DAILY 07/14/19 08/05/21 08/05/21 10:00 Divalproex ER [Depakote ER] 500 mg PO BID 09/09/19 08/05/21 07/19/21 Benztropine [Cogentin] 1 mg PO BID 12/29/20 07/11/[address] [Depakote Dr] 1,500 mg PO HS 12/29/20 07/11/21 Unknown Paliperidone Palmitate [Invega 234 mg IM QMONTH 12/29/20 07/11/21 Unknown Sustenna] Trazodone HCl 150 mg PO HS 12/29/20 07/11/21 Unknown traZODone [Desyrel] 150 mg PO QHS 06/25/21 08/05/21 07/19/21 Quetiapine Fumarate [SEROquel] 50 mg PO QDAY 07/11/21 07/11/21 Unknown Previous Rx's Medication Instructions Recorded Last Taken Type traZODone [Desyrel] 150 mg PO QHS #90 tablet 01/02/21 Unknown Rx Mupirocin [Bactroban 2%] 1 applic TP BID #1 tube 11/02/21 Unknown Rx Allergies Allergy/AdvReac Type Severity Reaction Status Date / Time codeine Allergy Unknown Verified 11/01/21 18:27 haloperidol [From Haldol] Allergy Seizure Verified 11/01/21 18:27 narcotics AdvReac Unknown Uncoded 09/21/21 11:56 ED Review of Systems ROS: Stated complaint: FALL FROM STANDING POSITION Other details as noted in HPI Comment: All other systems reviewed and negative Constitutional: denies: chills, fever Eyes: vision change Respiratory: denies: shortness of breath Cardiovascular: denies: chest pain, palpitations Gastrointestinal: denies: abdominal pain, nausea, vomiting Neurological: headache. denies: weakness, numbness, paresthesias, confusion, abnormal gait ED Past Medical Hx - Past Medical History Hx Hypertension: Yes Hx Congestive Heart Failure: No Hx Diabetes: No Hx GERD: Yes Hx Renal Disease: No Hx Arthritis: No Hx Seizures: No Hx Psychiatric Treatment: Yes (Paranoid schizophrenia, Severe depression) Hx Asthma: No Hx COPD: No Hx Dementia: No Hx HIV: No Additional medical history: bipolar. manic depression. substance abuse. ulcers, N/V - Surgical History Hx Cholecystectomy: No Hx Appendectomy: Yes Additional Surgical History: Right leg - Social History Smoking Status: Never Smoker - Medications Home Medications: Home Medications Medication Instructions Recorded Confirmed Last Taken Type Paliperidone Palmitate [Invega 234 mg IM QMONTH 05/19/19 08/05/21 07/31/21 10:00 History Sustenna] Benztropine [Cogentin] 0.5 mg PO DAILY 07/14/19 08/05/21 08/05/21 10:00 History Divalproex ER [Depakote ER] 500 mg PO BID 09/09/19 08/05/21 07/19/21 History Benztropine [Cogentin] 1 mg PO BID 12/29/20 07/11/[address] [Depakote Dr] 1,500 mg PO HS 12/29/20 07/11/21 Unknown History Paliperidone Palmitate [Invega 234 mg IM QMONTH 12/29/20 07/11/21 Unknown History Sustenna] Trazodone HCl 150 mg PO HS 12/29/20 07/11/21 Unknown History traZODone [Desyrel] 150 mg PO QHS #90 tablet 01/02/21 07/11/21 Unknown Rx traZODone [Desyrel] 150 mg PO QHS 06/25/21 08/05/21 07/19/21 History Quetiapine Fumarate [SEROquel] 50 mg PO QDAY 07/11/21 07/11/21 Unknown History Mupirocin [Bactroban 2%] 1 applic TP BID #1 tube 11/02/21 Unknown Rx ED Physical Exam - General Limitations: No Limitations General appearance: alert, in no apparent distress - Head Head exam: Present: normocephalic. Absent: atraumatic - Expanded Head Exam Expanded Head exam: Present: other (Erythema to right forehead) - Eye Eye exam: Present: normal appearance. Absent: conjunctival injection - Neck Neck exam: Present: normal inspection, full ROM. Absent: tenderness (No midline vertebral tenderness noted), lymphadenopathy - Respiratory Respiratory exam: Present: normal lung sounds bilaterally. Absent: respiratory distress, wheezes, rales, rhonchi, stridor, chest wall tenderness - Cardiovascular Cardiovascular Exam: Present: tachycardia, normal heart sounds - GI/Abdominal GI/Abdominal exam: Present: soft, normal bowel sounds. Absent: distended, t enderness, guarding, rebound, rigid - Expanded Lower Extremity Exam Left Knee exam: Present: tenderness, abrasion. Absent: normal inspection, d islocation, erythema Lower Leg exam: Present: normal inspection Foot/Toe exam: Absent: dislocation, erythema Neuro vascular tendon exam: Present: no vascular compromise. Absent: pulse deficit, abnormal cap refill, extremity cold to touch, pallor Gait: Positive: observed and normal Right Knee exam: Present: full ROM, tenderness, abrasion. Absent: normal inspection, deformity, dislocation, erythema Lower Leg exam: Present: normal inspection Ankle exam: Present: normal inspection Neuro vascular tendon exam: Present: no vascular compromise. Absent: pulse deficit, abnormal cap refill, extremity cold to touch, pallor Gait: Positive: observed and normal - Back Exam Back exam: Present: normal inspection. Absent: tenderness, vertebral tenderness - Neurological Exam Neurological exam: Present: alert, oriented X3, CN II-XII intact, normal gait, reflexes normal. Absent: motor sensory deficit - Psychiatric Psychiatric exam: Present: normal affect, normal mood - Skin Skin exam: Present: warm, dry, intact, normal color ED Course Vital Signs 11/01/21 18:24 Pulse Rate 110 H Blood Pressure 120/70 [Left] O2 Sat by Pulse 97 Oximetry ED Medical Decision Making - Radiology Data Radiology results: image reviewed CT scan of head without contrast: FINDINGS: CEREBRAL HEMISPHERES: Moderate motion artifact. Generalized atrophy and bilateral regions of periventricular white matter hypoattenuation compatible with microvascular ischemia are demonstrated. No midline shift. Basal cisterns patent. Lacunar infarction left basal ganglia is stable. HEMORRHAGE: None. CEREBELLUM / BRAINSTEM: No significant abnormality. ORBITS: No significant abnormality. SOFT TISSUES: No significant abnormality. SKULL: No significant abnormality. PARANASAL SINUSES / MASTOID AIR CELLS: Normal as visualized. ADDITIONAL FINDINGS: None. IMPRESSION: 1. Allowing for motion, no acute intracranial abnormality. Stable senescent changes. - Medical Decision Making 51-year-old white male with a past medical history of schizophrenia presents to the emergency department for evaluation after falling. He states that he was walking down guard and walk on his way to a a meeting at [employer] and he fell twice and hit his head on the concrete. He states that he had positive loss of consciousness. He denies vision changes, nausea, vomiting, and dizziness. He also has abrasions to his bilateral knees. Physical exam unremarkable except for bilateral knee abrasions. CT scan of head without any acute abnormalities noted. Patient will be discharged home and advised to follow-up with his primary care provider for further evaluation and management. He is advised to return to the emergency department as needed. He verbalizes understanding of and agreement with plan of care. Critical care attestation.: If time is entered above; I have spent that time in minutes in the direct care of this critically ill patient, excluding procedure time. ED Disposition Clinical Impression: Abrasion of knee, bilateral Fall Qualifiers: Encounter type: initial encounter Qualified Code(s): W19.XXXA - Unspecified fall, initial encounter Head injury Qualifiers: Encounter type: initial encounter Qualified Code(s): S09.90XA - Unspecified injury of head, initial encounter Disposition: HOME / SELF CARE / HOMELESS Is pt being admited?: No Does the pt Need Aspirin: No Condition: Stable Instructions: How to Use Cold Therapy, [id number], Abrasion, [id number] Additional Instructions: Use medications as prescribed. Follow-up with primary care provider if no improvement or worsening symptoms. Return to the emergency department as needed. Prescriptions: Mupirocin [Bactroban 2%] 1 applic TP BID #1 tube Referrals: YURY CAVAZOS MD [Primary Care Provider] - 3-5 Days Time of Disposition: 03:17
== END 2021-11-02 03:59 | disposition home or self-care (01) ==
LOC: ED 18:07
DX: S09.90XA Unspecified injury of head, initial encounter (principal); S80.212A Abrasion, left knee, initial encounter; S80.211A Abrasion, right knee, initial encounter; I10 Essential (primary) hypertension; K21.9 Gastro-esophageal reflux disease without esophagitis; F20.9 Schizophrenia, unspecified; F32.9 Major depressive disorder, single episode, unspecified; Z90.89 Acquired absence of other organs; Z98.890 Other specified postprocedural states; Z88.8 Allergy status to other drugs, medicaments and biological substances; Z88.5 Allergy status to narcotic agent; W19.XXXA Unspecified fall, initial encounter; Y93.89 Activity, other specified; Y99.8 Other external cause status; Y92.89 Other specified places as the place of occurrence of the external cause
CPT/HCPCS: 70450; 99284

== ENCOUNTER 2022-02-10 13:14 | Emergency (ER) | payer MEDICARE ==
--- NOTE | 2022-02-10 13:45 | Emergency Department Report ---
ED Head Trauma HPI - General Chief complaint: Fall Stated complaint: FALL/ HEAD INJURY Time Seen by Provider: 02/10/22 13:26 Source: patient, EMS Mode of arrival: Ambulatory Limitations: No Limitations - History of Present Illness Initial comments: 51-year-old white male from [place] [facility] [place] who reports that he fell [place] patient had no loss consciousness, not complain of any vomiting denies any neck or chest pain. patient complains only headache MD Complaint: head injury -: Sudden Mechanism of Injury: mechanical fall Location: frontal Previous Trauma to this Area: No Place: home Radiation: none Quality: aching Consistency: intermittent Provoking factors: none known Other Injuries: none Associated Symptoms: denies other symptoms - Related Data Home Medications Medication Instructions Recorded Confirmed Last Taken Paliperidone Palmitate [Invega 234 mg IM QMONTH 05/19/19 08/05/21 07/31/21 10:00 Sustenna] Benztropine [Cogentin] 0.5 mg PO DAILY 07/14/19 08/05/21 08/05/21 10:00 Divalproex ER [Depakote ER] 500 mg PO BID 09/09/19 08/05/21 07/19/21 Benztropine [Cogentin] 1 mg PO BID 12/29/20 07/11/[address] [Depakote Dr] 1,500 mg PO HS 12/29/20 07/11/21 Unknown Paliperidone Palmitate [Invega 234 mg IM QMONTH 12/29/20 07/11/21 Unknown Sustenna] Trazodone HCl 150 mg PO HS 12/29/20 07/11/21 Unknown traZODone [Desyrel] 150 mg PO QHS 06/25/21 08/05/21 07/19/21 Quetiapine Fumarate [SEROquel] 50 mg PO QDAY 07/11/21 07/11/21 Unknown Previous Rx's Medication Instructions Recorded Last Taken Type traZODone [Desyrel] 150 mg PO QHS #90 tablet 01/02/21 Unknown Rx Mupirocin [Bactroban 2%] 1 applic TP BID #1 tube 11/02/21 Unknown Rx Allergies/Adverse reactions: Allergies Allergy/AdvReac Type Severity Reaction Status Date / Time codeine Allergy Unknown Verified 11/01/21 18:27 haloperidol [From Haldol] Allergy Seizure Verified 11/01/21 18:27 narcotics AdvReac Unknown Uncoded 09/21/21 11:56 ED Review of Systems ROS: Stated complaint: FALL/ HEAD INJURY Other details as noted in HPI Constitutional: denies: chills, fever Eyes: denies: eye pain, eye discharge, vision change ENT: denies: ear pain, throat pain Respiratory: denies: cough, shortness of breath, wheezing Cardiovascular: denies: chest pain, palpitations Endocrine: no symptoms reported Gastrointestinal: denies: abdominal pain, nausea, diarrhea Genitourinary: denies: urgency, dysuria Musculoskeletal: denies: back pain, joint swelling, arthralgia Skin: denies: rash, lesions Neurological: headache. denies: weakness, numbness, paresthesias, confusion Psychiatric: as per HPI Hematological/Lymphatic: as per HPI ED Past Medical Hx - Past Medical History Hx Hypertension: Yes Hx Congestive Heart Failure: No Hx Diabetes: No Hx GERD: Yes Hx Renal Disease: No Hx Arthritis: No Hx Seizures: No Hx Psychiatric Treatment: Yes (Paranoid schizophrenia, Severe depression) Hx Asthma: No Hx COPD: No Hx Dementia: No Hx HIV: No Additional medical history: bipolar. manic depression. substance abuse. ulcers, N/V - Surgical History Hx Cholecystectomy: No Hx Appendectomy: Yes Additional Surgical History: Right leg - Social History Smoking Status: Never Smoker - Medications Home Medications: Home Medications Medication Instructions Recorded Confirmed Last Taken Type Paliperidone Palmitate [Invega 234 mg IM QMONTH 05/19/19 08/05/21 07/31/21 10:00 History Sustenna] Benztropine [Cogentin] 0.5 mg PO DAILY 07/14/19 08/05/21 08/05/21 10:00 History Divalproex ER [Depakote ER] 500 mg PO BID 09/09/19 08/05/21 07/19/21 History Benztropine [Cogentin] 1 mg PO BID 12/29/20 07/11/[address] [Depakote Dr] 1,500 mg PO HS 12/29/20 07/11/21 Unknown History Paliperidone Palmitate [Invega 234 mg IM QMONTH 12/29/20 07/11/21 Unknown History Sustenna] Trazodone HCl 150 mg PO HS 12/29/20 07/11/21 Unknown History traZODone [Desyrel] 150 mg PO QHS #90 tablet 01/02/21 07/11/21 Unknown Rx traZODone [Desyrel] 150 mg PO QHS 06/25/21 08/05/21 07/19/21 History Quetiapine Fumarate [SEROquel] 50 mg PO QDAY 07/11/21 07/11/21 Unknown History Mupirocin [Bactroban 2%] 1 applic TP BID #1 tube 11/02/21 Unknown Rx ED Physical Exam - General Limitations: No Limitations General appearance: alert, in no apparent distress - Head Head exam: Present: normocephalic, other (Right forehead hematoma.) - Eye Eye exam: Present: normal appearance, PERRL, EOMI Pupils: Present: normal accommodation - ENT ENT exam: Present: normal exam, normal orophraynx - Neck Neck exam: Present: normal inspection, full ROM. Absent: tenderness - Respiratory Respiratory exam: Present: normal lung sounds bilaterally - Cardiovascular Cardiovascular Exam: Present: regular rate, normal rhythm, normal heart sounds - GI/Abdominal GI/Abdominal exam: Present: soft. Absent: distended, tenderness, guarding - Extremities Exam Extremities exam: Present: normal inspection, full ROM, normal capillary refill - Back Exam Back exam: Present: normal inspection - Neurological Exam Neurological exam: Present: alert, oriented X3, CN II-XII intact, normal gait. Absent: abnormal gait - Psychiatric Psychiatric exam: Present: normal affect ED Course Vital Signs 02/10/22 13:29 Temperature 97.2 F L Pulse Rate 82 Respiratory 18 Rate Blood Pressure 150/80 [Right] O2 Sat by Pulse 96 Oximetry Critical care attestation.: If time is entered above; I have spent that time in minutes in the direct care of this critically ill patient, excluding procedure time. ED Disposition Clinical Impression: Minor head injury Disposition: HOME / SELF CARE / HOMELESS Is pt being admited?: No Does the pt Need Aspirin: No Condition: Stable Instructions: Head Injury, Adult, [id number] Referrals: YURY CAVAZOS MD [Primary Care Provider] - 3-5 Days
--- NOTE | 2022-02-10 14:32 | Cat Scan Report ---
CT HEAD WITHOUT CONTRAST INDICATION / CLINICAL INFORMATION: guillermo. TECHNIQUE: All CT scans at this location are performed using CT dose reduction for ALARA by means of automated e xposure control. COMPARISON: Head CT 11/02/2021 and 01/17/2021 FINDINGS: HEMORRHAGE: No evidence of intracranial hemorrhage or extra-axial fluid collection. EXTRA-AXIAL SPACES: Cortical sulci, sylvian fissures and basilar cisterns have an unremarkable appear ance. VENTRICULAR SYSTEM: The third and lateral ventricles are of normal size and configuration. CEREBRAL PARENCHYMA: No areas of abnormal brain parenchymal attenuation are identified. There is no i ndication of recent infarction. Incidental note is made of a dilated perivascular space in the inferi or aspect of the left putamen. Differential diagnosis includes minor infarction. This finding is stab le compared to studies dating back through 01/17/2021. MIDLINE SHIFT OR HERNIATION: There is no mass effect. CEREBELLUM / BRAINSTEM: Brainstem and cerebellum have an unremarkable appearance. MIDLINE STRUCTURES:No abnormalities of the pituitary gland or pineal region are identified. INTRACRANIAL VESSELS:No abnormalities are identified on this noncontrast head CT. ORBITS: visualized portions of the orbits have an unremarkable appearance. SOFT TISSUES of HEAD: There is a moderate scalp hematoma along the lateral aspect of the right forehe ad. CALVARIUM: Evaluation of bone windows reveals no abnormalities. PARANASAL SINUSES / MASTOID AIR CELLS: Visualized portions of the paranasal sinuses are free from inf lammatory mucosal disease. Mastoid air cells are normally pneumatized. ADDITIONAL FINDINGS: None. IMPRESSION: 1. No acute intracranial abnormality. No interval change in the CT appearance of the brain in compari son to previous study. 2. Large right lateral forehead scalp hematoma. Signer Name: Fred Chapin MD Signed: 02/10/2022 2:28 PM Workstation Name: [id number]
[2022-02-10 21:20] VITALS: BP 126/68
== END 2022-02-10 21:20 | disposition home or self-care (01) ==
LOC: ED 13:14
DX: S09.8XXA Other specified injuries of head, initial encounter (principal); I10 Essential (primary) hypertension; Z90.89 Acquired absence of other organs; X58.XXXA Exposure to other specified factors, initial encounter; Y93.89 Activity, other specified; Y92.89 Other specified places as the place of occurrence of the external cause; Y99.8 Other external cause status; Z88.5 Allergy status to narcotic agent; Z88.8 Allergy status to other drugs, medicaments and biological substances
CPT/HCPCS: 70450; 99283